=== PATIENT | female | born 1990 | race Caucasian/White ===

== ENCOUNTER 2017-02-17 08:15 | Inpatient (IN) ==
--- NOTE | 2017-02-15 09:00 | Diag Imaging Result Doc PS360 ---
CHEST-2 VIEWS - 02/15/2017 INDICATION: pat TECHNIQUE: 06/15/2015 COMPARISON: None FINDINGS: The lungs are normally expanded and clear. Heart size and mediastinal contours are normal. No pneumothorax or pleural effusion. IMPRESSION: Negative exam. Electronically signed by Geronimo Osborne 02/15/2017 8:57 AM
[2017-02-15 09:25] LABS: MANUAL DIFF NEEDED? NO; URINE MICRO REVIEW NEEDED? NO; URINE SOURCE VOIDED
[2017-02-15 09:28] LABS: BASO% 0.4 % (0.0-0.8); EOS# 0.23 X1000 (0.0-0.7); EOS% 2.2 % (0.0-10.0); HEMATOCRIT 42.5 % (37.0-47.0); HEMOGLOBIN 15.1 g/dL (12.0-16.0); IMM GRAN# 0.02 X1000 (0.0-0.04); IMM GRAN% 0.2 % (0.0-0.5); LYMPH# 3.59 X1000 (1.2-3.4); LYMPH% 34.1 % (20.5-51.1); MCH 31.7 PG (27-31); MCHC 35.5 g/dL (33-37); MCV 89.3 FL (81-99); MONO# 0.84 X1000 (0.11-0.59); MPV 9.9 FL (7.4-10.4); NEUT% 55.1 % (42.2-75.2); PLT 318 X1000 (130-400); RBC 4.76 XMIL (4.2-5.4)
[2017-02-15 09:32] LABS: BILIRUBIN URINE NEGATIVE (NEGATIVE); BLOOD URINE TRACE (NEGATIVE); COLOR YELLOW; GLUCOSE URINE NEGATIVE (NEGATIVE); LEUKOCYTES URINE SMALL (NEGATIVE); NITRITE URINE NEGATIVE (NEGATIVE); PH URINE 5.5; PROTEIN URINE TRACE mg/dL (NEGATIVE); SP GRAVITY URINE 1.026; TURBIDITY URINE HAZY (CLEAR); UROBILINOGEN URINE NORMAL (NORMAL)
[2017-02-15 09:33] LABS: UR EPITHELIAL CELLS >10 /HPF (<10); URINE BACTERIA 1+ /HPF
[2017-02-15 09:56] LABS: AGAP 13; ALBUMIN 4.6 g/dL (3.5-5.0); ALKALINE PHOSPHATASE 67 U/L (32-104); BUN 12 mg/dL (8-22); CHLORIDE 105 mmol/L (98-107); COSMO 279; GOT 22 U/L (10-30); GPT 29 U/L (10-36); POTASSIUM 3.9 mmol/L (3.5-5.1); SODIUM 140 mmol/L (136-145); TCO2 22 mmol/L (25-35); TOTAL PROTEIN 7.4 g/dL (6.3-8.3)
[2017-02-17] MEDS ORDERED: MEFOXIN 1 GM/D5W 1 GM/50 ML IVPB IV ONE (09:10)
[2017-02-17] MEDS ORDERED: LR 1,000 ML ONE (09:11)
[2017-02-17] MEDS ORDERED: ROBINUL ONE ×3 (09:36→11:11)
[2017-02-17] MEDS ORDERED: DUONEB (A & A) ONE (09:41)
[2017-02-17] MEDS: FLAGYL 500 MG/NS 500 MG/100 ML IVPB IV SCH ×2 (09:56→10:40)
[2017-02-17] MEDS ORDERED: QUELICIN (DOSE) ONE (10:03)
[2017-02-17] MEDS ORDERED: XYLOCAINE-MPF 2% ONE (10:03)
[2017-02-17] MEDS ORDERED: DIPRIVAN 1% ONE (10:04)
[2017-02-17] MEDS ORDERED: MARCAINE 0.25% PF/EPI 1:200,000 ONE (10:35)
[2017-02-17] MEDS ORDERED: VERSED ONE (10:41)
[2017-02-17] MEDS ORDERED: FENTANYL ONE (10:58)
[2017-02-17] MEDS ORDERED: MARCAINE 0.25% PF ONE (11:07)
[2017-02-17] MEDS ORDERED: SODIUM CHLORIDE 0.9% 10 ML ONE (11:08)
[2017-02-17] MEDS ORDERED: EXPAREL 1.3% ONE (11:08)
[2017-02-17] MEDS ORDERED: NEOSTIGMINE ONE (11:11)
[2017-02-17] MEDS ORDERED: DECADRON ONE (11:11)
[2017-02-17] MEDS ORDERED: ZOFRAN ONE ×2 (11:11→12:59)
[2017-02-17] MEDS ORDERED: OFIRMEV 1000 MG/ISOTONIC SOLN 1,000 MG/100 ML BOTTLE ONE (11:12)
[2017-02-17 11:33] LABS: URINE MICRO REVIEW NEEDED? NO; URINE SOURCE CATH
[2017-02-17 11:50] LABS: BILIRUBIN URINE NEGATIVE (NEGATIVE); BLOOD URINE NEGATIVE (NEGATIVE); COLOR YELLOW; GLUCOSE URINE NEGATIVE (NEGATIVE); LEUKOCYTES URINE NEGATIVE (NEGATIVE); NITRITE URINE NEGATIVE (NEGATIVE); PH URINE 5.5; PROTEIN URINE NEGATIVE (NEGATIVE); TURBIDITY URINE CLEAR (CLEAR); UR EPITHELIAL CELLS <10 /HPF (<10); URINE BACTERIA NEGATIVE /HPF; URINE RBC <10 /HPF (<10); URINE WBC <10 /HPF (<10); UROBILINOGEN URINE NORMAL (NORMAL)
[2017-02-17] MEDS ORDERED: APRESOLINE ONE (12:34)
[2017-02-17] MEDS ORDERED: LABETALOL ONE (12:35)
[2017-02-17] MEDS: DILAUDID ONE ×2 (12:52→13:06)
[2017-02-17] MEDS ORDERED: D5 1/2 NS 1,000 ML ONE (12:56)
[2017-02-17] MEDS ORDERED: DILAUDID ONE (13:29)
[2017-02-17] MEDS ORDERED: DILAUDID PCA VIAL ONE (13:54)
--- NOTE | 2017-02-17 14:03 | OPERATIVE NOTE ---
PROCEDURE DATE: 02/17/2017 PREOPERATIVE DIAGNOSIS: Inflammatory mass, distal small intestine. PROCEDURE: Laparoscopy with laparotomy with resection of inflammatory mass, distal small bowel. Possible foreign body versus Crohn's versus Meckel's diverticulitis. Procedure is resection of inflammatory mass, distal small bowel, with appendectomy. DESCRIPTION OF PROCEDURE: The patient was brought to the operating room. After satisfactory induction of IV and endotracheal anesthesia, athrombic TEDs and Boss catheter were placed. Her abdomen was broadly prepped and draped in the appropriate manner for laparoscopy. Initially, a right epigastric Magalie approach was used for placement of a Magalie trocar. The abdomen was insufflated to 3.5L of carbon dioxide. On the left side of the abdomen, a 5 mm trocar was placed. The patient was placed in Trendelenburg. The uterus, tubes, and ovaries appeared to be normal. The appendix, cecum, and distal ileum appeared to be normal. On walking the distal ileum back approximately 1-1/2 to 2 feet away from the ileocecal valve, there was an inflammatory mass involving only small intestine. It appeared grossly benign. The laparoscopic portion was subsequently terminated. An infraumbilical to pubis incision was taken sharply down through skin and subcutaneous tissue. Fascia was incised in the midline and the peritoneum was entered. The viscera were packed superiorly along with the omentum. The inflammatory mass was delivered. It appeared grossly benign. A small adhesed piece of small bowel was trimmed away. The inflammatory mass was subsequently isolated. The area proximally and distally to the mass was divided with a HILARY stapler. Mesenteric attachments were taken down with the LigaSure instrument. On completion, a bvqj-[id number] anastomosis was once again performed with a HILARY stapler and this was cut across with a TA-45. Mesenteric defect was closed with interrupted 3-0 silk. There appeared to be no leakage, bleeding, or expanding hematoma. The area was bossed with interrupted 2-0 silk. Attention was then taken to the cecum. The appendix was placed on a stretch. A window was made at its base. The TA-45 was used to staple across the base of the appendix. The mesentery was clamped and divided, tied with a #1 Vicryl, and suture ligated with 2-0 silk. On completion, there was no evidence of leakage, bleeding, or expanding hematoma in the cecal area, as well. After accounting for all laparotomy sponges, the omentum was drawn down over the small-bowel anastomosis and cecum. The peritoneum was closed in a single running layer of #1 Vicryl. The fascia was closed with interrupted #1 Maxon. Subcutaneous tissue was debrided, closed with 3-0 Vicryl, and the skin, itself, with stainless steel clips. The 5 mm trocar site on the left side was closed with stainless steel clips. The Magalie incision underwent fascial closures of 0 Surgilon and again closed with stainless steel clips. Sterile dressings were applied. Boss catheter was removed. The anesthesiologist performed a TAP block for pain control. The patient was subsequently awakened and extubated in the operating room, and transferred to recovery. ESTIMATED BLOOD LOSS: Around 30 mL. cc: Hari Gee MD
[2017-02-17] MEDS ORDERED: ZOFRAN IV PRN ×3 (14:42→15:16)
[2017-02-17] MEDS ORDERED: NARCAN 0.4 MG in LR 1,000 ML IV PRN (14:42)
[2017-02-17] MEDS ORDERED: DILAUDID PCA VIAL IV PRN (14:42)
[2017-02-17] MEDS ORDERED: NARCAN IV PRN (14:42)
[2017-02-17] MEDS ORDERED: NORCO-7.5 PO PRN (15:30)
[2017-02-17] MEDS: FLOMAX PO SCH (16:58)
[2017-02-17] MEDS: D5 1/2 NS 1,000 ML IV SCH ×2 (17:30→22:16)
[2017-02-17] MEDS: BENADRYL IV PRN ×2 (17:37→22:12)
[2017-02-17] MEDS: MEFOXIN 1 GM/D5W 1 GM/50 ML IVPB IV SCH (18:36)
[2017-02-17] MEDS: PERIDEX MT SCH ×2 (19:23→22:55)
[2017-02-17] MEDS: ZOFRAN IV PRN (19:23)
[2017-02-17] MEDS: SODIUM CHLORIDE 0.9% INJ PRN (21:10)
[2017-02-17] MEDS: PHENERGAN IV PRN (21:10)
[2017-02-18] MEDS: MEFOXIN 1 GM/D5W 1 GM/50 ML IVPB IV SCH ×2 (02:10→10:26)
[2017-02-18] MEDS: SODIUM CHLORIDE 0.9% INJ PRN ×3 (02:20→23:25)
[2017-02-18] MEDS: PHENERGAN IV PRN ×3 (02:20→23:25)
[2017-02-18] MEDS: ZOFRAN IV PRN (05:41)
[2017-02-18 06:04] LABS: MANUAL DIFF NEEDED? NO
[2017-02-18 06:10] LABS: BASO% 0.1 % (0.0-0.8); EOS# 0.05 X1000 (0.0-0.7); EOS% 0.4 % (0.0-10.0); HEMATOCRIT 36.8 % (37.0-47.0); HEMOGLOBIN 12.8 g/dL (12.0-16.0); IMM GRAN# 0.02 X1000 (0.0-0.04); IMM GRAN% 0.2 % (0.0-0.5); LYMPH# 3.05 X1000 (1.2-3.4); LYMPH% 24.8 % (20.5-51.1); MCH 31.4 PG (27-31); MCHC 34.8 g/dL (33-37); MCV 90.2 FL (81-99); MONO# 1.17 X1000 (0.11-0.59); MONO% 9.5 % (1.7-9.3); MPV 9.8 FL (7.4-10.4); PLT 281 X1000 (130-400); RBC 4.08 XMIL (4.2-5.4)
[2017-02-18 06:46] LABS: AGAP 11; BUN 5 mg/dL (8-22); CALCIUM 8.5 mg/dL (8.8-10.2); CHLORIDE 103 mmol/L (98-107); COSMO 275; POTASSIUM 3.8 mmol/L (3.5-5.1); SODIUM 139 mmol/L (136-145); TCO2 25 mmol/L (25-35)
[2017-02-18] MEDS: FLOMAX PO SCH (08:51)
[2017-02-18] MEDS: PERIDEX MT SCH ×2 (08:51→20:29)
[2017-02-18] MEDS: BENADRYL IV PRN ×2 (08:56→20:29)
[2017-02-18] MEDS: D5 1/2 NS 1,000 ML IV SCH ×3 (10:24→21:40)
[2017-02-19] MEDS: D5 1/2 NS 1,000 ML IV SCH ×2 (07:31→18:40)
[2017-02-19] MEDS: BENADRYL IV PRN ×4 (07:44→20:58)
[2017-02-19] MEDS: PERIDEX MT SCH ×4 (07:53→22:34)
[2017-02-19] MEDS: FLOMAX PO SCH ×2 (07:53→11:28)
[2017-02-19] MEDS ORDERED: ZOFRAN PO PRN (09:05)
[2017-02-19] MEDS: TUMS EXTRA STRENGTH PO PRN ×2 (11:30→20:58)
[2017-02-19] MEDS: COLACE PO SCH ×3 (11:35→22:34)
[2017-02-19] MEDS: SODIUM CHLORIDE 0.9% INJ PRN ×3 (16:23→23:42)
[2017-02-19] MEDS: PHENERGAN IV PRN ×2 (19:27→23:41)
[2017-02-19] MEDS ORDERED: FLEET MINERAL OIL ENEMA PR ONE (21:00)
[2017-02-20] MEDS: PHENERGAN IV PRN (05:02)
[2017-02-20] MEDS: SODIUM CHLORIDE 0.9% INJ PRN (05:02)
[2017-02-20] MEDS: D5 1/2 NS 1,000 ML IV SCH (05:05)
[2017-02-20 08:16] VITALS: BP 125/77
[2017-02-20] MEDS: NORCO-10 PO PRN ×2 (09:05→11:21)
[2017-02-20] MEDS: COLACE PO SCH (09:05)
[2017-02-20] MEDS: TUMS EXTRA STRENGTH PO PRN (09:05)
[2017-02-20] MEDS: FLOMAX PO SCH (09:05)
[2017-02-20] MEDS: PERIDEX MT SCH (09:06)
[2017-02-20] MEDS: BENADRYL IV PRN (09:06)
--- NOTE | 2017-02-25 17:52 | DISCHARGE SUMMARY ---
ADMISSION DATE: 02/17/2017 DISCHARGE DATE: 02/20/2017 DIAGNOSES: Partial small-bowel obstruction with inflammatory mass, distal small intestine. POSTOPERATIVE DIAGNOSIS: Meckel's diverticulitis. PROCEDURE PERFORMED: Laparoscopy with laparotomy with resection of a portion of small intestine including the Meckel's diverticulum with inflammation as well as appendectomy. HISTORY AND HOSPITAL COURSE: The patient is a 26-year-old, white female referred by Dr. Chin for evaluation of a chronic abdominal pain. CT revealing an inflammatory mass in the distal small intestine. The patient underwent an outpatient mechanical bowel prep and was admitted on the day of surgery. Laparoscopy revealed an inflammatory mass, approximately a foot and a half proximal to the ileocecal valve. Impression was possible fishbone, toothpick, or Meckel's diverticulum. Laparotomy was subsequently performed with resection of the inflammatory mass and primary side-to- side anastomosis as well as appendectomy. Hospitalization was largely uneventful. Dietary advancements were well tolerated. The wound appeared well healing and she was allowed home on 02/20 to be seen in the office on 02/23. cc: Hari Gee MD
== END 2017-02-20 11:19 | disposition home or self-care (01) ==
LOC: SURHOLD 08:15 → OR 08:15 → OBSVTOIN 12:48 → 4N 14:07
PROVIDERS: ADMIT Surgery; ATTEND Surgery